=== PATIENT | female | born 1960 | race Caucasian/White ===

== ENCOUNTER 2019-04-28 13:17 | Emergency (ER) | payer OTHER ==
[~2019-04-28] VITALS: Ht 177.8 cm; Wt 66.7 kg
== END 2019-04-28 17:41 | disposition home or self-care (01) ==
LOC: ER 13:17
DX: L29.8 Other pruritus (principal); R11.2 Nausea with vomiting, unspecified; R19.09 Other intra-abdominal and pelvic swelling, mass and lump